=== PATIENT | male | born 1980 | race Caucasian/White ===

== ENCOUNTER 2020-09-16 09:19 | Emergency (ER) | payer OTHER ==
[~2020-09-16] VITALS: Ht 172.7 cm; Wt 86.2 kg
[2020-09-16] MEDS ORDERED: DOXYCYCLINE 10100 M2 PO (10:44)
[2020-09-16] MEDS ORDERED: HYDROCODON-ACE1 EAC7 PO (10:44)
[2020-09-16 11:07] VITALS: BP 125/85
== END 2020-09-16 11:07 | disposition home or self-care (01) ==
LOC: M.ERS 09:19
DX: S61.210A Laceration without foreign body of right index finger without damage to nail, initial encounter (principal); M10.9 Gout, unspecified; Z88.0 Allergy status to penicillin; Z88.1 Allergy status to other antibiotic agents; W23.0XXA Caught, crushed, jammed, or pinched between moving objects, initial encounter; Y93.89 Activity, other specified; Y92.89 Other specified places as the place of occurrence of the external cause; Y99.8 Other external cause status